=== PATIENT | male | born 1960 | race Caucasian/White ===

== ENCOUNTER 2019-10-25 09:21 | Inpatient (IN) ==
[2019-10-25] MEDS ORDERED: CeFAZolin Syr 2,000MG/20 ML 2,000 MG/20 ML SYRINGE IVPB ONE (09:43)
[2019-10-25] MEDS ORDERED: Ringers Solution, Lactated 1,000 ML IVC SCH ×2 (09:45→15:34)
[2019-10-25] MEDS ORDERED: CeFAZolin Syr 3,000MG/30 ML 3,000 MG/30 ML SYRINGE IVPB ONE (09:48)
[2019-10-25] MEDS ORDERED: *HR* FentaNYL (PF) 100 MCG/2 ML VIAL ONE ×2 (10:32→11:31)
[2019-10-25] MEDS ORDERED: *HR* OxyCODONE Immed Rel 5 MG TABLET PO PRN (11:16)
[2019-10-25] MEDS ORDERED: Ondansetron 4 MG/2 ML VIAL IVP ONE (11:16)
[2019-10-25] MEDS ORDERED: *HR* Midazolam HCl 2 MG/2 ML VIAL ONE (11:25)
[2019-10-25] MEDS ORDERED: Dexamethasone 4 MG/ML VIAL ONE (11:26)
[2019-10-25] MEDS ORDERED: Ondansetron 4 MG/2 ML VIAL ONE (11:26)
[2019-10-25] MEDS ORDERED: Lidocaine -MPF 2% 2 ML VIAL ONE (11:26)
[2019-10-25] MEDS ORDERED: *HR* Propofol 200 MG/20 ML VIAL IVP ONE (11:26)
[2019-10-25] MEDS ORDERED: *HR* Succinylcholine 200 MG/10 ML VIAL IVP ONE (11:26)
[2019-10-25] MEDS ORDERED: ROPIVACAINE/PF/NS 0.25% 1 EACH SYRINGE INTRAART ONE (11:59)
[2019-10-25] MEDS ORDERED: Ropivacaine/PF 0.5% 30 ML VIAL ONE (11:59)
[2019-10-25] MEDS ORDERED: Ethanol\\Acetic Acid\\Na Ace\\Ben 1,000 ML IRRIG.SOLN IR ONE (12:07)
[2019-10-25] MEDS ORDERED: *HR* PHENYLEPHRINE 1,000 MCG/10 ML SYRINGE IVP ONE (12:56)
[2019-10-25] MEDS: *HR* HYDROmorphone PF 0.5 MG/0.5 ML SYRINGE IVP PRN ×2 (14:18→14:24)
[2019-10-25 14:28] LABS: Hematocrit 47.7 % (37.5-50.1); Hemoglobin 16.1 g/dL (12.9-16.9)
[2019-10-25] MEDS ORDERED: Naloxone 0.4 MG/ML INJ IVP PRN (15:34)
[2019-10-25] MEDS ORDERED: *HR* OxyCODONE/APAP 5/325 TABLET PO PRN (15:34)
[2019-10-25] MEDS ORDERED: MOM Conc 10 ML UD.LIQ PO PRN (15:34)
[2019-10-25] MEDS ORDERED: Sennosides 8.6 MG TABLET PO PRN (15:34)
[2019-10-25] MEDS ORDERED: Ondansetron 4 MG/2 ML VIAL IVP PRN (15:34)
[2019-10-25] MEDS: *HR* Enoxaparin 30 MG/0.3 ML SYRINGE SQ SCH (17:13)
[2019-10-25] MEDS ORDERED: *HR* Enoxaparin 30 MG/0.3 ML SYRINGE SQ SCH (18:00)
[2019-10-25] MEDS ORDERED: Lisinopril-HCTZ 20-12.5mg TABLET PO SCH (18:00)
[2019-10-25] MEDS: *HR* OxyCODONE Immed Rel 5 MG TABLET PO PRN ×2 (18:04→22:18)
[2019-10-25] MEDS: ceFAZolin 3,000 MG in 0.9 % Sodium Chloride 100 ML IVPB SCH (19:48)
[2019-10-25] MEDS ORDERED: CeFAZolin Syr 3,000MG/30 ML 3,000 MG/30 ML SYRINGE IVPB SCH (20:00)
[2019-10-26] MEDS: ceFAZolin 3,000 MG in 0.9 % Sodium Chloride 100 ML IVPB SCH (02:50)
[2019-10-26] MEDS: *HR* Enoxaparin 30 MG/0.3 ML SYRINGE SQ SCH (05:03)
[2019-10-26 05:36] LABS: Hematocrit 40.7 % (37.5-50.1)
[2019-10-26 05:48] LABS: Hemoglobin 14.3 g/dL (12.9-16.9)
[2019-10-26 05:56] LABS: BUN/Creatinine Ratio 25 (6-26); Blood Urea Nitrogen 21 mg/dL (6-20); Calcium 8.8 mg/dL (8.6-10.3); Carbon Dioxide 25 mEq/L (23-29); Chloride 100 mEq/L (98-107); Glucose 146 mg/dL (70-105); Osmolality,Calculated 282 (280-300); Potassium 3.8 mEq/L (3.5-5.1); Sodium 133 mEq/L (136-145); eGFR For African Americans > 60 (> 60); eGFR For Non-African Americans > 60 (> 60)
[2019-10-26] MEDS ORDERED: amLODIPine 5 MG TABLET PO SCH (09:00)
[2019-10-26 11:39] VITALS: BP 114/75
[2019-10-26] MEDS: *HR* OxyCODONE Immed Rel 5 MG TABLET PO PRN (11:39)
== END 2019-10-26 13:20 | disposition home or self-care (01) | DRG 483 ==
LOC: SAMDAY 09:21 → 3NENU 14:53
PROVIDERS: ADMIT Orthopaedic Surgery; ATTEND Orthopaedic Surgery